=== PATIENT | female | born 1995 | race Caucasian/White ===

== ENCOUNTER 2022-10-15 10:39 | Emergency (ER) | payer OTHER ==
[~2022-10-15] VITALS: Ht 162.6 cm; Wt 70.3 kg
[2022-10-15 10:48] VITALS: BP_SYST 136; PULSE 85; RESP 20; TEMP 98.3; O2SAT 98
[2022-10-15] MEDS ORDERED: ALBMDI INH (12:11)
[2022-10-15 12:30] VITALS: BP_SYST 136; PULSE 85; RESP 20; TEMP 98.3; O2SAT 98
== END 2022-10-15 12:29 | disposition home or self-care (01) ==
LOC: SED 10:39
DX: U07.1 COVID-19 (principal); R06.02 Shortness of breath; R09.81 Nasal congestion; Z79.899 Other long term (current) drug therapy
CPT/HCPCS: 71045; 99283